=== PATIENT | female | born 1970 | race African-American/Black ===

== ENCOUNTER 2017-05-14 16:21 | Emergency (ER) | payer SELFPAY ==
--- NOTE | 2017-05-14 18:26 | ER Document Report ---
ED Medical Screen (RME) - General Chief Complaint: Allergic Reaction Stated Complaint: POSSIBLE ALLERGIC REACTION Time Seen by Provider: 05/14/17 18:16 Mode of Arrival: Ambulatory Information source: Patient, Relative TRAVEL OUTSIDE OF THE U[place]S. IN LAST 30 DAYS: No - HPI Notes: 05/14/17 18:17 47 yr old with a hx of RA HTN female for complaints of pain between her shoulder blades, headache, right n/t in arm, right jaw pain and chest pain that started 8 hours ago. comes and goes, at least 15 epiodes, sharp and shooting, last for a few seconds. was seen at [facility] x 9 hours ago for these symptoms. pain ketorlac 15mg and dexamethasone 1mg while at [facility]. pt takes lisinopril 10mg daily, did take her medications today. pain ketorlac 15mg and dexamethasone 1mg while at [facility] brother passes from a PR at 47. I have greeted and performed a rapid initial assessment of this patient. A comprehensive ED assessment and evaluation of the patient, analysis of test results and completion of medical decision making process will be conducted by an additional ED providers. - Related Data Allergies/Adverse Reactions: aspirin [Aspirin] Allergy (Verified 01/08/14 12:25) Respiratory distress Past Medical History - Past Medical History Cardiac Medical History: Reports: Hx Hypercholesterolemia, Hx Hypertension Endocrine Medical History: Reports: Hx Diabetes Mellitus Type 2 GI Medical History: Reports: Hx Gastroesophageal Reflux Disease Past Surgical History: Reports: Hx Tubal Ligation - Immunizations Hx Diphtheria, Pertussis, Tetanus Vaccination: Yes Physical Exam - Vital signs Vitals: BP 157/94 H 05/14/17 17:04 - Cardiovascular Rhythm: Regular Course - Vital Signs Vital signs: Temp Pulse Resp BP Pulse Ox 99.1 F 88 12 176/92 H 98 05/14/17 17:12 05/14/17 17:12 05/14/17 17:12 05/14/17 17:12 05/14/17 17:12
[2017-05-14] MEDS ORDERED: LOSARTAN POTASSIUM 25 MG TABLET PO ONE (18:27)
--- NOTE | 2017-05-14 19:00 | RADIOLOGY REPORT (SQ) ---
EXAM DESCRIPTION: CT HEAD WITHOUT COMPLETED DATE/TIME: 05/14/2017 6:52 pm REASON FOR STUDY: cp, HTN with blurred vision COMPARISON: None. TECHNIQUE: Axial images acquired through the brain without intravenous contrast. Images reviewed wi th bone, brain and subdural windows. Images stored on PACS. All CT scanners at this facility use dose modulation, iterative reconstruction, and/or weight based d osing when appropriate to reduce radiation dose to as low as reasonably achievable (ALARA). [facility]: Dose Right [facility]: CareDose [facility]: Dose Right [facility]: Teradose 4D [facility]: [employer] RADIATION DOSE: mGy. LIMITATIONS: None. FINDINGS: VENTRICLES: Normal size and contour. CEREBRUM: No masses. No hemorrhage. No midline shift. No evidence for acute infarction. Normal gra y/white matter differentiation. No areas of low density in the white matter. CEREBELLUM: No masses. No hemorrhage. No alteration of density. No evidence for acute infarction. EXTRAAXIAL SPACES: No fluid collections. No masses. ORBITS AND GLOBE: No intra- or extraconal masses. Normal contour of globe without masses. CALVARIUM: No fracture. PARANASAL SINUSES: No fluid or mucosal thickening. SOFT TISSUES: No mass or hematoma. OTHER: No other significant finding. IMPRESSION: NORMAL BRAIN CT WITHOUT CONTRAST. EVIDENCE OF ACUTE STROKE: NO. COMMENT: Quality ID # [id number]: Final reports with documentation of one or more dose reduction techniques (e.g., Automated exposure control, adjustment of the mA and/or kV according to patient size, use of iterative reconstruction technique) TECHNICAL DOCUMENTATION: JOB ID: [id number] [employer]- All Rights Reserved
--- NOTE | 2017-05-14 19:05 | RADIOLOGY REPORT (SQ) ---
EXAM DESCRIPTION: CHEST PA/LAT COMPLETED DATE/TIME: 05/14/2017 6:58 pm REASON FOR STUDY: cp btwn right shoulder blades COMPARISON: 04/29/2015 EXAM PARAMETERS: NUMBER OF VIEWS: two views TECHNIQUE: Digital Frontal and Lateral radiographic views of the chest acquired. RADIATION DOSE: NA LIMITATIONS: none FINDINGS: LUNGS AND PLEURA: No opacities, masses or pneumothorax. No pleural effusion. MEDIASTINUM AND HILAR STRUCTURES: No masses or contour abnormalities. HEART AND VASCULAR STRUCTURES: Heart normal size. No evidence for failure. BONES: No acute findings. HARDWARE: None in the chest. OTHER: No other significant finding. IMPRESSION: NO SIGNIFICANT RADIOGRAPHIC FINDING IN THE CHEST. TECHNICAL DOCUMENTATION: JOB ID: [id number] [employer]- All Rights Reserved
[2017-05-14 20:41] LABS: ABSOLUTE LYMPHOCYTES (AUTO) 1.6 10^3/uL (0.5-4.7); ABSOLUTE MONOCYTES (AUTO) 0.1 10^3/uL (0.1-1.4); ABSOLUTE NEUT (AUTO) 7.6 10^3/uL (1.7-8.2); BASOPHILS % (AUTO) 0.5 % (0-2); HEMATOCRIT 42.3 % (36.0-47.0); LYMPHOCYTES % (AUTO) 16.7 % (13-45); MEAN CORPUSCULAR HEMOGLOBIN 28.3 pg (27.0-33.4); MEAN CORPUSCULAR HGB CONC 33.2 g/dL (32.0-36.0); MEAN CORPUSCULAR VOLUME 85 fl (80-97); MONOCYTES % (AUTO) 0.7 % (3-13); PLATELET COUNT 322 10^3/uL (150-450); RED BLOOD COUNT 4.96 10^6/uL (3.72-5.28); RED CELL DISTRIBUTION WIDTH 13.5 % (11.5-14.0); SEGMENTED NEUTROPHILS % (AUTO) 82.1 % (42-78); TOTAL CELLS COUNTED % (AUTO) 100 %; WHITE BLOOD COUNT 9.3 10^3/uL (4.0-10.5)
[2017-05-14 22:17] LABS: ALANINE AMINOTRANSFERASE 48 U/L (9-52); ALBUMIN 4.7 g/dL (3.5-5.0); ALKALINE PHOSPHATASE 72 U/L (38-126); ANION GAP 9 (5-19); ASPARTATE AMINO TRANSFERASE 54 U/L (14-36); BILIRUBIN,DIRECT 0.1 mg/dL (0.0-0.4); BILIRUBIN,TOTAL 0.2 mg/dL (0.2-1.3); BLOOD UREA NITROGEN 11 mg/dL (7-20); C-REACTIVE PROTEIN 5.8 mg/L (<10.0); CALCIUM 10.6 mg/dL (8.4-10.2); CARBON DIOXIDE 24 mmol/L (22-30); CHLORIDE 105 mmol/L (98-107); CREATINE KINASE 53 U/L (30-135); GLUCOSE 199 mg/dL (75-110); POTASSIUM 4.2 mmol/L (3.6-5.0); SODIUM 138.1 mmol/L (137-145)
[2017-05-14] MEDS ORDERED: HYDROCODONE/ACETAMINOPHEN 5-325 MG (6 TAB/ER DISP) PO PRN (23:42)
[2017-05-14] MEDS ORDERED: AMOXICILLIN TRYHYD 250 MG/5 ML SUSP 80 ML (ER DISP) PO ONE (23:43)
[2017-05-14 23:48] VITALS: BP 137/89
--- NOTE | 2017-05-14 23:48 | ER Document Report ---
ED General - General Chief Complaint: Allergic Reaction Stated Complaint: POSSIBLE ALLERGIC REACTION Time Seen by Provider: 05/14/17 18:16 Mode of Arrival: Ambulatory Notes: Patient is a 47-year-old female with a past notes history of rheumatoid arthritis and hypertension who presents with multiple complaints. Patient complains of diffuse body pain to her back, shoulders, knees, as well as left ear pain. Patient states that she was also concerned that she may have been having an allergic reaction to a Toradol shot she received earlier today which was actually reason that she came to the emergency department in the very first place. Patient states that family is worried she might be having some swelling to her face and eyelid although it has spontaneously resolved. She denies any prior history of NSAIDs causing problems in the past. Her diffuse body pains described as a aching, constant, throbbing pain to most of her joint spaces. She is currently following with a dump grounds checker for her rheumatoid arthritis. She reports she has been trying [id number] pain medications without any improvement of the pain. She denies any vomiting, fever, altered mental status , focal weakness or numbness. She states that she had some chest discomfort earlier today but that has since spontaneously resolved. TRAVEL OUTSIDE OF THE [place] IN LAST 30 DAYS: No - Related Data Allergies/Adverse Reactions: aspirin [Aspirin] Allergy (Verified 01/08/14 12:25) Respiratory distress Past Medical History - General Information source: Patient, Relative - Social History Smoking Status: Never Smoker Chew tobacco use (# tins/day): No Frequency of alcohol use: None Drug Abuse: None Lives with: Spouse/Significant other Family History: Reviewed & Not Pertinent Patient has suicidal ideation: No Patient has homicidal ideation: No - Past Medical History Cardiac Medical History: Reports: Hx Hypercholesterolemia, Hx Hypertension Endocrine Medical History: Reports: Hx Diabetes Mellitus Type 2 Renal/ Medical History: Denies: Hx Peritoneal Dialysis GI Medical History: Reports: Hx Gastroesophageal Reflux Disease Past Surgical History: Reports: Hx Tubal Ligation - Immunizations Hx Diphtheria, Pertussis, Tetanus Vaccination: Yes Review of Systems - Review of Systems Notes: Constitutional: Negative for fever. HENT: Negative for sore throat. Eyes: Negative for visual changes. Cardiovascular: Positive for chest pain. Respiratory: Negative for shortness of breath. Gastrointestinal: Negative for abdominal pain, vomiting or diarrhea. Genitourinary: Negative for dysuria. Musculoskeletal: Positive for diffuse musculoskeletal pain Skin: Negative for rash. Neurological: Negative for headaches, weakness or numbness. 10 point ROS negative except as marked above and in HPI. Physical Exam - Vital signs Vitals: BP 157/94 H 05/14/17 17:04 Interpretation: Hypertensive Notes: PHYSICAL EXAMINATION: GENERAL: Well-appearing, well-nourished and in no acute distress. HEAD: Atraumatic, normocephalic. EYES: Pupils equal round and reactive to light, extraocular movements intact, sclera anicteric, conjunctiva are normal. ENT: nares patent, oropharynx clear without exudates. Moist mucous membranes. NECK: Normal range of motion, supple without lymphadenopathy LUNGS: Breath sounds clear to auscultation bilaterally and equal. No wheezes rales or rhonchi. HEART: Regular rate and rhythm without murmurs ABDOMEN: Soft, nontender, normoactive bowel sounds. No guarding, no rebound. No masses appreciated. EXTREMITIES: Normal range of motion, no pitting or edema. No cyanosis. NEUROLOGICAL: No focal neurological deficits. Moves all extremities spontaneously and on command. PSYCH: Normal mood, normal affect. SKIN: Warm, Dry, normal turgor, no rashes or lesions noted. Course - Re-evaluation Re-evalutation: 05/14/17 23:44 Patient presents with multiple vague complaints that did not appear to be concerning for any acute life-threatening pathology. Vitals are within normal limits at triage and at time of discharge. Physical examination is unremarkable. Patient has tolerated oral intake without difficulty. Patient was not noted to be in distress at any point during their ER visit. At this time, based on the reassuring evaluation, I do not suspect an acute MS, pulmonary embolus, aortic dissection, acute intra-abdominal pathology, stroke, or sepsis. Patient does have a left otitis media on examination and will be started on amoxicillin, liquid per her request, for the next 10 days. I have also agreed to give the patient a Milton dispense pack for nighttime pain related to her rheumatoid arthritis but have informed her that for long-term she will need follow-up with her dump grounds checker. There is no evidence of an allergic reaction on today's evaluation. Will discharge with return precautions and follow-up recommendations. Verbal discharge instructions given a the bedside and opportunity for questions given. Medication warnings reviewed. Patient is in agreement with this plan and has verbalized understanding of return precautions and the need for primary care follow-up in the next 24-72 hours. - Vital Signs Vital signs: Temp Pulse Resp BP Pulse Ox 98.3 F 81 16 137/89 H 100 05/14/17 23:48 05/14/17 23:48 05/14/17 23:48 05/14/17 23:48 05/14/17 23:48 - Laboratory Result Diagrams: 05/14/17 20:10 05/14/17 20:10 Laboratory results interpreted by me: 05/14/17 05/14/17 20:10 20:10 Seg Neutrophils % 82.1 H Monocytes % 0.7 L Glucose 199 H Calcium 10.6 H AST 54 H - Diagnostic Test Radiology reviewed: Image reviewed, Reports reviewed Radiology results interpreted by me: 05/14/17 23:44 CT head: No acute intracranial bleed or mass Chest x-ray: No acute infiltrate or pneumothorax Discharge - Discharge Clinical Impression: Rheumatoid arthritis Qualifiers: Rheumatoid arthritis location: unspecified site Rheumatoid factor presence: unspecified presence Qualified Code(s): M06.9 - Rheumatoid arthritis, unspecified Left otitis media Qualifiers: Otitis media type: suppurative Chronicity: acute Recurrence: not specified as recurrent Spontaneous tympanic membrane rupture: without spontaneous rupture Qualified Code(s): H66.002 - Acute suppurative otitis media without spontaneous rupture of ear drum, left ear Chest pain Qualifiers: Chest pain type: unspecified Qualified Code(s): R07.9 - Chest pain, unspecified Condition: Good Disposition: HOME, SELF-CARE Additional Instructions: You were seen today for ear pain and have an acute ear infection. Please take the antibiotic that has been prescribed until it is completed even if you are feeling better before you have finished all the antibiotics. For your pain: Take ibuprofen 600 mg and acetaminophen 1000 mg every 6 hours together as needed for pain. Return if you have worsening of your pain, loss of hearing in the affected ear, worsening facial pain, headaches, pass out, or any other symptoms that are worrisome to you. Remainder of your labs, CT of her head, your chest x-ray, are all reassuring. Your history and exam do not suggest a heart attack or any other life- threatening pathology. You have been given a very small amount of Milton which he can use at night only to help you sleep in regards to the pain related to rheumatoid arthritis. However, you need to follow-up with rodeo rider for long-term pain control plan. Forms: Special Work Note Referrals: BETH MENON MD [Primary Care Provider] - Follow up as needed
--- NOTE | 2017-05-15 09:26 | EKG REPORT ---
SEVERITY:- NORMAL ECG - SINUS RHYTHM : Confirmed by: Mao Lloyd 15-May-2017 09:26:13
== END 2017-05-15 00:07 | disposition home or self-care (01) ==
LOC: ER 16:21
DX: M06.9 Rheumatoid arthritis, unspecified (principal); H66.002 Acute suppurative otitis media without spontaneous rupture of ear drum, left ear; R07.9 Chest pain, unspecified; T78.40XA Allergy, unspecified, initial encounter; I10 Essential (primary) hypertension; H92.02 Otalgia, left ear
CPT/HCPCS: 36415; 70450; 71046; 80053; 82550; 84484; 85025; 86140; 93005; 93010; 99284

== ENCOUNTER → 2017-06-12 | Outpatient (CLI) | payer BC ==
--- NOTE | 2017-06-12 15:45 | WOMENS IMAGING REPORT ---
EXAM DESCRIPTION: 3D SCREENING MAMMO BILAT COMPLETED DATE/TIME: 06/12/2017 8:18 am REASON FOR STUDY: SCREENING MAMMO Z12.31 ENCNTR SCREEN MAMMOGRAM FOR MALIGNANT NEOPLASM OF BRYAN COMPARISON: 02/09/2016 and 01/15/2015. TECHNIQUE: Standard craniocaudal and mediolateral oblique views of each breast recorded using digita l acquisition and breast tomosynthesis. LIMITATIONS: None. FINDINGS: No masses, calcifications or architectural distortion. No areas of suspicion. Read with the assistance of CAD. .[facility] - R2 [employer] Version 1.3 .[facility] - R2 Cen[employer] Version 1.3 .[facility] - R2 Cenova Version 2.4 .[facility] - R2 Cenova Version 2.4 .[facility] - R2 [employer] Version 9.2 IMPRESSION: NORMAL MAMMOGRAM. BIRADS 1. BREAST DENSITY: c. The breasts are heterogeneously dense, which may obscure small masses. BIRAD: 1 NEGATIVE RECOMMENDATION: ROUTINE SCREENING COMMENT: The patient has been notified of the results by letter per MQSA requirements. Additional no tification policies are in place for contacting patient with suspicious or incomplete findings. Quality ID #[id number]: The [employer] recommends an annual screening mammogram for women aged 40 years or over. This facility utilizes a reminder system to ensure that all patients receive reminder letters, and/or direct phone calls for appointments. This includes reminders for routine scr eening mammograms, diagnostic mammograms, or other Breast Imaging Interventions when appropriate. Th is patient will be placed in the appropriate reminder system. The [employer] (ACR) has developed recommendations for screening MRI of the breast s in certain patient populations, to be used in conjunction with mammography. Breast MRI surveillanc e may be appropriate for women with more than 20% lifetime risk of developing breast cancer as deter mined by genetic testing, significant family history of the disease, or history of mantle radiation f or Hodgkins Disease. ACR Practice Guidelines 2008. DBT Technology DBT is a type of tomographic mammography. With conventional mammography, overlapping breast tissue ma y make lesions difficult to detect, even with good compression. DBT uses an x-ray tube that rotates a round the breast, taking images at different angles. These images are then combined to create thin sl ices of the breast that the radiologist can view as a 3D reconstruction. The Written unit can perform full-field digital mammograms (2D imaging); or DBT (3D imaging); or both, in a combination mode that quickly performs both the mammogram and the tomosynthesis scan while the breast is still compressed. PQRS 6045F: Fluoroscopic imaging is not utilized for breast tomosynthesis. TECHNICAL DOCUMENTATION: FINDING NUMBER: (1) ASSESSMENT: (1) JOB ID: [id number] [employer]- All Rights Reserved Reading location - IP/workstation name: [email or web address]
== END ==
LOC: WI 07:56
PROVIDERS: ATTEND Nurse Practitioner
DX: Z12.31 Encounter for screening mammogram for malignant neoplasm of breast (principal)
CPT/HCPCS: 77063; 77067

== ENCOUNTER 2018-06-27 22:31 | Emergency (ER) | payer BC ==
--- NOTE | 2018-06-28 01:20 | ER Document Report ---
ED General - General Chief Complaint: Arm Pain Stated Complaint: NUMBNESS IN LEFT ARM Time Seen by Provider: 06/28/18 01:03 Primary Care Provider: DAMIAN CONNOR FNP [Primary Care Provider] - Follow up as needed Notes: Patient is a 48-year-old female with a history of rheumatoid arthritis that comes to the emergency department for chief complaint of chest pain. She states that she frequently has chest pain over the front of her chest mainly, however she felt it go up towards her left shoulder and neck area earlier and she felt some tingling in her left arm. She states that the pain is sharp, intermittent, reproducible with palpation over the arm/chest, and with movement. No fevers recorded, she denies shortness of breath, she denies dizziness, nausea, vomiting. She denies personal history of cardiac disease. She is on multiple medications for RA including methotrexate, Humira infusions every other week, and is currently on a prednisone taper because of her recent increase in pain mainly over the chest. She follows with [facility] rheumatology. She states she gets blood checked every month. She takes pain medication only as needed, she is on control. She denies smoking, alcohol, recreational drugs. Her brother had an DE. TRAVEL OUTSIDE OF THE [place] IN LAST 30 DAYS: No - Related Data Allergies/Adverse Reactions: aspirin [Aspirin] Allergy (Verified 01/08/14 12:25) Respiratory distress Past Medical History - General Information source: Patient - Social History Smoking Status: Never Smoker Frequency of alcohol use: None Drug Abuse: None Lives with: Family Family History: Reviewed & Not Pertinent - Past Medical History Cardiac Medical History: Reports: Hx Hypercholesterolemia, Hx Hypertension Endocrine Medical History: Reports: Hx Diabetes Mellitus Type 2 Renal/ Medical History: Denies: Hx Peritoneal Dialysis GI Medical History: Reports: Hx Gastroesophageal Reflux Disease Past Surgical History: Reports: Hx Tubal Ligation - Immunizations Hx Diphtheria, Pertussis, Tetanus Vaccination: Yes Review of Systems - Review of Systems Constitutional: No symptoms reported EENT: No symptoms reported Cardiovascular: See HPI Respiratory: See HPI Gastrointestinal: No symptoms reported Genitourinary: No symptoms reported Female Genitourinary: No symptoms reported Musculoskeletal: See HPI Skin: No symptoms reported Hematologic/Lymphatic: No symptoms reported Neurological/Psychological: No symptoms reported Physical Exam - Vital signs Vitals: Temp Pulse Resp BP Pulse Ox 98.9 F 81 17 170/93 H 100 06/27/18 23:26 06/27/18 23:26 06/27/18 23:26 06/27/18 23:26 06/27/18 23:26 - Notes Notes: GENERAL: Alert, interacts well. No acute distress. HEAD: Normocephalic, atraumatic. EYES: Pupils equal, round, and reactive to light. Extraocular movements intact. ENT: Oral mucosa moist, tongue midline. Oropharynx unremarkable. Airway patent. Nares patent, no nasal septal hematoma, TM's intact. NECK: Full range of motion. Supple. Trachea midline. LUNGS: Clear to auscultation bilaterally, no wheezes, rales, or rhonchi. No respiratory distress. Very reproducible tenderness over the chest wall generally. There is also tenderness over the left proximal arm. HEART: Regular rate and rhythm. No murmur ABDOMEN: Soft, non-tender. Non-distended. Bowel sounds present in all 4 quadrant s. GENITOURINARY: Deferred EXTREMITIES: Moves all 4 extremities spontaneously. No edema, normal radial and dorsalis pedis pulses bilaterally. No cyanosis. BACK: no cervical, thoracic, lumbar midline tenderness. No saddle anesthesia, normal distal neurovascular exam. NEUROLOGICAL: Alert and oriented x3. Normal speech. [cranial nerves II through XII grossly intact]. PSYCH: Normal affect, normal mood. SKIN: Warm, dry, normal turgor. No rashes or lesions noted. Course - Re-evaluation Re-evalutation: EKG with no T wave inversions or ST segment changes in consecutive leads. Initial troponin negative. Chest x-ray unremarkable. CBC and chemistry unremarkable. Initially patient not asking for anything, but then later she is asking for pain across her chest wall. She has very reproducible chest wall and left arm tenderness which is musculoskeletal. She was provided with this. Afterwards she had no symptoms. Second troponin obtained and is negative. I discussed with patient in detail. Based on her age and risk factors her heart score is 3. I did recommend that she have a stress test performed, she states she prefers to have her primary care in [place] refer her to a [place] admissions clinician to have this perfor med. She states she will call in the morning. She has no current symptoms unless she moves, she does have some pain with movement. She is following closely with rheumatology as well. No tachycardia, hypoxia, or signs of distress. Discussed return precautions with patient in detail however. Patient states understanding and agreement with plan. - Vital Signs Vital signs: Temp Pulse Resp BP Pulse Ox 98.5 F 79 18 115/80 98 06/28/18 01:16 06/28/18 01:08 06/28/18 05:15 06/28/18 05:15 06/28/18 05:15 - Laboratory Result Diagrams: 06/28/18 01:37 06/28/18 01:37 Laboratory results interpreted by me: 06/28/18 06/28/18 01:37 01:37 Hgb 11.9 L Hct 34.9 L Sodium 136.4 L Glucose 152 H Discharge - Discharge Clinical Impression: Chest wall pain Chest pain Qualifiers: Chest pain type: unspecified Qualified Code(s): R07.9 - Chest pain, unspecified Rheumatoid arthritis Qualifiers: Rheumatoid arthritis location: unspecified site Rheumatoid factor presence: unspecified presence Qualified Code(s): M06.9 - Rheumatoid arthritis, unspecified Condition: Stable Disposition: HOME, SELF-CARE Additional Instructions: Your work-up tonight does not show any concerning abnormalities. I strongly recommend a close cardiology follow-up, call your primary care provider today to have this referral established and your work-up completed including stress testing. Return if you worsen including increased pain, difficulty breathing, fever, passing out, or any other concerning or worsening symptoms. Forms: Treatment of Relative/Child Referrals: DAMIAN CONNOR FNP [Primary Care Provider] - Follow up as needed
[2018-06-28] MEDS ORDERED: ONDANSETRON HCL INJ/PF 4 MG/2 ML SDV IV ONE (01:48)
[2018-06-28] MEDS ORDERED: MORPHINE SULFATE 10 MG/ML INJ IV ONE (01:48)
[2018-06-28 01:49] LABS: ABSOLUTE BASOPHILS # (AUTO) 0.1 10^3/uL (0.0-0.2); ABSOLUTE EOSINOPHILS # (AUTO) 0.1 10^3/uL (0.0-0.6); ABSOLUTE LYMPHOCYTES (AUTO) 3.7 10^3/uL (0.5-4.7); ABSOLUTE MONOCYTES (AUTO) 0.6 10^3/uL (0.1-1.4); HEMATOCRIT 34.9 % (36.0-47.0); HEMOGLOBIN 11.9 g/dL (12.0-15.5); LYMPHOCYTES % (AUTO) 38.7 % (13-45); MEAN CORPUSCULAR HEMOGLOBIN 28.8 pg (27.0-33.4); MEAN CORPUSCULAR HGB CONC 34.1 g/dL (32.0-36.0); MEAN CORPUSCULAR VOLUME 84 fl (80-97); MONOCYTES % (AUTO) 6.7 % (3-13); PLATELET COUNT 252 10^3/uL (150-450); RED BLOOD COUNT 4.13 10^6/uL (3.72-5.28); RED CELL DISTRIBUTION WIDTH 13.3 % (11.5-14.0); SEGMENTED NEUTROPHILS % (AUTO) 52.6 % (42-78); TOTAL CELLS COUNTED % (AUTO) 100 %; WHITE BLOOD COUNT 9.5 10^3/uL (4.0-10.5)
[2018-06-28 02:02] LABS: ALANINE AMINOTRANSFERASE 24 U/L (9-52); ALBUMIN 3.8 g/dL (3.5-5.0); ALKALINE PHOSPHATASE 56 U/L (38-126); ANION GAP 8 (5-19); ASPARTATE AMINO TRANSFERASE 25 U/L (14-36); BILIRUBIN,DIRECT 0.1 mg/dL (0.0-0.4); BILIRUBIN,TOTAL 0.3 mg/dL (0.2-1.3); BLOOD UREA NITROGEN 11 mg/dL (7-20); CALCIUM 9.6 mg/dL (8.4-10.2); CARBON DIOXIDE 23 mmol/L (22-30); CHLORIDE 105 mmol/L (98-107); GLUCOSE 152 mg/dL (75-110); POTASSIUM 3.7 mmol/L (3.6-5.0); SODIUM 136.4 mmol/L (137-145); TOTAL PROTEIN 7.2 g/dL (6.3-8.2)
--- NOTE | 2018-06-28 02:13 | RADIOLOGY REPORT (SQ) ---
EXAM DESCRIPTION: XR CHEST 1 VIEW COMPLETED DATE/TME: 06/28/2018 01:16 CLINICAL HISTORY: 48 years, Female, chest pain Comparison: None FINDINGS: No focal lung consolidation. No pleural effusion. No pneumothorax. Cardiac and mediastinal silhouette is unremarkable. No acute osseous abnormality. Soft tissues are unremarkable. IMPRESSION: No acute findings. No focal lung consolidation.
[2018-06-28 05:20] VITALS: BP 115/80
--- NOTE | 2018-06-28 20:52 | EKG REPORT ---
SEVERITY:- NORMAL ECG - SINUS RHYTHM : Confirmed by: Kimberly Smith MD 28-Jun-2018 20:51:58
== END 2018-06-28 05:36 | disposition home or self-care (01) ==
LOC: ER 22:31
DX: M06.9 Rheumatoid arthritis, unspecified (principal); R07.9 Chest pain, unspecified; R07.89 Other chest pain; R20.0 Anesthesia of skin; M79.602 Pain in left arm; M25.512 Pain in left shoulder; M54.2 Cervicalgia; I10 Essential (primary) hypertension; E11.9 Type 2 diabetes mellitus without complications
CPT/HCPCS: 93005; 99284; 96374; 96375; 36415; 85025; 80053; 84484; 71045; 93010; J2270; J2405

== ENCOUNTER 2020-02-06 18:33 | Emergency (ER) | payer BC, OTHER ==
[2020-02-06] MEDS ORDERED: ACETAMINOPHEN 325 MG TABLET PO ONE (20:02)
--- NOTE | 2020-02-06 20:06 | ER Document Report ---
ED Medical Screen (RME) - General Chief Complaint: Chest Pain Stated Complaint: CHEST PAIN,BACK PAIN Time Seen by Provider: 02/06/20 19:53 Primary Care Provider: DAMIAN CONNOR FNP [Primary Care Provider] - Follow up as needed Mode of Arrival: Ambulatory Information source: Patient Notes: Patient is a 49-year-old -[place] female with history of rheumatoid arthritis and a number of other medical problems coming in today with sharp pain across her chest. Also pain across her upper back. She has a low-grade fever. She is on [employer] for her RA. 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 General exam: Latest appearing but nontoxic Heart: Regular rate and rhythm Pulmonary clear Abdomen nontender nondistended I have greeted and performed a rapid initial assessment of this patient. A comprehensive ED assessment and evaluation of the patient, analysis of test results and completion of the medical decision making process will be conducted by additional ED providers. TRAVEL OUTSIDE OF THE [place] IN LAST 30 DAYS: No - Related Data Allergies/Adverse Reactions: aspirin [Aspirin] Allergy (Verified 02/06/20 19:50) Respiratory distress Past Medical History - Social History Frequency of alcohol use: None Drug Abuse: None - Past Medical History Cardiac Medical History: Reports: Hx Hypercholesterolemia, Hx Hypertension Endocrine Medical History: Reports: Hx Diabetes Mellitus Type 2 Renal/ Medical History: Denies: Hx Peritoneal Dialysis GI Medical History: Reports: Hx Gastroesophageal Reflux Disease Musculoskeltal Medical History: Reports Hx Arthritis Past Surgical History: Reports: Hx Cholecystectomy, Hx Tubal Ligation - Immunizations Hx Diphtheria, Pertussis, Tetanus Vaccination: Yes Physical Exam - Vital signs Vitals: Temp Pulse Resp BP Pulse Ox 100.2 F 109 H 16 141/95 H 98 02/06/20 18:55 02/06/20 18:55 02/06/20 18:55 02/06/20 18:55 02/06/20 18:55 Course - Vital Signs Vital signs: Temp Pulse Resp BP Pulse Ox 100.2 F 109 H 16 141/95 H 98 02/06/20 18:55 02/06/20 18:55 02/06/20 18:55 02/06/20 18:55 02/06/20 18:55 Doctor's Discharge - Discharge Referrals: DAMIAN CONNOR FNP [Primary Care Provider] - Follow up as needed
--- NOTE | 2020-02-06 20:49 | RADIOLOGY REPORT (SQ) ---
XR CHEST 1 VIEW HISTORY: Chest pain. COMPARISON: 06/28/2018 FINDINGS: The heart size is within normal limits. There is no pulmonary vascular congestion. No consolidation, pleural effusion, or pneumothorax is seen. No acute bony findings are seen. IMPRESSION: No evidence of acute cardiopulmonary disease.
[2020-02-06] MEDS ORDERED: ONDANSETRON 4 MG TAB.RAPDIS PO ONE (21:16)
[2020-02-06 23:12] LABS: ABSOLUTE LYMPHOCYTES (AUTO) 1.8 10^3/uL (0.5-4.7); ABSOLUTE MONOCYTES (AUTO) 1.1 10^3/uL (0.1-1.4); BASOPHILS % (AUTO) 0.6 % (0-2); EOSINOPHILS % (AUTO) 0.1 % (0-6); HEMATOCRIT 41.2 % (36.0-47.0); HEMOGLOBIN 13.7 g/dL (12.0-15.5); LYMPHOCYTES % (AUTO) 26.1 % (13-45); MEAN CORPUSCULAR HEMOGLOBIN 28.1 pg (27.0-33.4); MEAN CORPUSCULAR HGB CONC 33.2 g/dL (32.0-36.0); MEAN CORPUSCULAR VOLUME 85 fl (80-97); MONOCYTES % (AUTO) 15.3 % (3-13); PLATELET COUNT 178 10^3/uL (150-450); RED BLOOD COUNT 4.87 10^6/uL (3.72-5.28); RED CELL DISTRIBUTION WIDTH 13.4 % (11.5-14.0); SEGMENTED NEUTROPHILS % (AUTO) 57.9 % (42-78); TOTAL CELLS COUNTED % (AUTO) 100 %
[2020-02-06 23:27] LABS: ALBUMIN 4.2 g/dL (3.5-5.0); ALKALINE PHOSPHATASE 68 U/L (38-126); ANION GAP 13 (5-19); ASPARTATE AMINO TRANSFERASE 61 U/L (14-36); BILIRUBIN,DIRECT 0.2 mg/dL (0.0-0.4); BILIRUBIN,TOTAL 0.4 mg/dL (0.2-1.3); BLOOD UREA NITROGEN 7 mg/dL (7-20); CALCIUM 9.4 mg/dL (8.4-10.2); CARBON DIOXIDE 20 mmol/L (22-30); CHLORIDE 102 mmol/L (98-107); GLUCOSE 137 mg/dL (75-110); POTASSIUM 3.9 mmol/L (3.6-5.0); TOTAL PROTEIN 7.5 g/dL (6.3-8.2)
[2020-02-07] MEDS ORDERED: PREDNISONE 20 MG TABLET PO ONE (00:23)
[2020-02-07] MEDS ORDERED: ACETAMINOPHEN WITH CODEINE #3 TABLET PO ONE (00:23)
[2020-02-07] MEDS ORDERED: NORMAL SALINE 1000 ML 1,000 ML IV ONE (00:27)
[2020-02-07 02:00] LABS: A TYPE INFLUENZA AG NEGATIVE (NEGATIVE); B INFLUENZA AG NEGATIVE (NEGATIVE)
--- NOTE | 2020-02-07 02:57 | RADIOLOGY REPORT (SQ) ---
CT angiogram chest with contrast on 02/07/2020 at 2:00 AM CLINICAL INDICATION: Chest pain, elevated d-dimer, fever TECHNIQUE: Multiple axial images are obtained throughout the chest following the administration of IV contrast. Computer generated 3D reconstructions/MIPS were performed. This exam was performed according to our departmental dose-optimization program, which includes automated exposure control, adjustment of the mA and/or kV according to patient size and/or use of iterative reconstruction technique. Total DLP is 410.02 mGy*cm. COMPARISON: None FINDINGS: There is no thoracic aortic aneurysm or dissection. The patient is status post cholecystectomy. Limited visualized upper abdomen is unremarkable. There is no pleural or pericardial effusion. There is evidence of calcified granulomatous disease in the chest. There are no filling defects within the pulmonary arteries to suggest a pulmonary embolus. There is single peripheral groundglass opacity that is relatively wedge-shaped in the superior right lower lobe seen well on axial image 45 and coronal image 49. This has an appearance worrisome for small pulmonary infarct although a definite peripheral filling defect to confirm a pulmonary embolus in this region is not identified. Early infectious etiology is also possible. The lungs are otherwise clear. No bony abnormality is noted. IMPRESSION: 1. No definite evidence of pulmonary embolus. 2. Peripheral opacity in the right lower lobe. Visually this has an appearance worrisome for small pulmonary infarct although a definite pulmonary embolus as a cause of this is not identified therefore this is favored to be post infectious or inflammatory. Imaging features can be seen with viral pneumonia, though are nonspecific and can occur with a variety of infectious and noninfectious processes. [PneInd] Reference: https://pubs.rsna.org/doi/full/10.1148/ryct.7544450250
[2020-02-07] MEDS ORDERED: AZITHROMYCIN 250 MG TABLET PO ONE (03:46)
--- NOTE | 2020-02-07 03:56 | ER Document Report ---
ED General - General Chief Complaint: Chest Pain Stated Complaint: CHEST PAIN,BACK PAIN Time Seen by Provider: 02/06/20 19:53 Primary Care Provider: DAMIAN CONNOR FNP [Primary Care Provider] - Follow up as needed Mode of Arrival: Ambulatory Notes: 49-year-old female with diabetes, hypertension, rheumatoid arthritis on prednisone and Humira presents with approximately 2 days of gradual onset gradually worsening constant and diffuse chest pain feeling like it is radiating to her upper back associated with subjective fever. Patient endorses having a dry cough for the past month without any recent change. Patient denies any focal back pain, drug use, neck pain or stiffness, headache, productive cough, abdominal pain, vomiting, diarrhea or constipation, unexplained weight loss, low er extremity edema, DVT/PE/hypercoagulability history in self or family, cancer history, hemoptysis, recent travel/trauma/surgery/immobilization, sick contacts, recent hospitalizations, recent antibiotics, smoking history, asthma history, cardiac history, exertional chest pain, pleuritic chest pain TRAVEL OUTSIDE OF THE [place] IN LAST 30 DAYS: No - Related Data Allergies/Adverse Reactions: aspirin [Aspirin] Allergy (Verified 02/06/20 19:50) Respiratory distress Past Medical History - General Information source: Patient - Social History Smoking Status: Former Smoker Frequency of alcohol use: None Drug Abuse: None Family History: Reviewed & Not Pertinent - Past Medical History Cardiac Medical History: Reports: Hx Hypercholesterolemia, Hx Hypertension Endocrine Medical History: Reports: Hx Diabetes Mellitus Type 2 Renal/ Medical History: Denies: Hx Peritoneal Dialysis GI Medical History: Reports: Hx Gastroesophageal Reflux Disease Musculoskeletal Medical History: Reports Hx Arthritis Past Surgical History: Reports: Hx Cholecystectomy, Hx Tubal Ligation - Immunizations Hx Diphtheria, Pertussis, Tetanus Vaccination: Yes Review of Systems - Review of Systems Notes: REVIEW OF SYSTEMS: CONSTITUTIONAL : + fever, chills, or sweats. EENT: Denies recent sinus symptoms, denies throat pain CARDIOVASCULAR: + chest pain, -JL RESPIRATORY: + cough, denies shortness of breath. GASTROINTESTINAL: Denies abdominal pain, nausea/vomiting. GENITOURINARY: Denies difficulty urinating, painful urination. FEMALE GENITOURINARY: Denies abnormal vaginal bleeding, vaginal discharge. MUSCULOSKELETAL: Denies neck pain, +back pain. SKIN: Denies rash or skin lesions. HEMATOLOGIC : Denies easy bruising or bleeding. LYMPHATIC: Denies swollen, enlarged glands. NEUROLOGICAL: Denies headache, denies change in gait. PSYCHIATRIC: Denies anxiety or stress or depression. Physical Exam - Vital signs Vitals: Temp Pulse Resp BP Pulse Ox 100.2 F 109 H 16 141/95 H 98 02/06/20 18:55 02/06/20 18:55 02/06/20 18:55 02/06/20 18:55 02/06/20 18:55 - Notes Notes: PHYSICAL EXAMINATION: GENERAL: Well-appearing, well-nourished and in no acute distress. HEAD: Atraumatic, normocephalic. EYES: Pupils equal round and appropriate constriction, sclera anicteric, conjunctiva are normal. ENT: nares patent, moist mucous membranes. NECK/BACK: Normal range of motion, supple without lymphadenopathy, no midline spinal tenderness or deformity, no focality to back pain, normal inspection LUNGS: Breath sounds clear to auscultation bilaterally and equal. No wheezes rales or rhonchi. Normal respiratory rate and effort HEART: Regular rate and rhythm without murmurs ABDOMEN: Soft, nontender, no guarding, no masses, no CVAT EXTREMITIES: Normal range of motion, no pitting or edema. No cyanosis. NEUROLOGICAL: Awake, alert, conversing appropriately, moves all extremities spontaneously. PSYCH: Normal mood, normal affect. SKIN: Warm, Dry, normal turgor, no rashes or lesions noted. Course - Re-evaluation Re-evalutation: 02/07/20 03:59 Patient with chest pain, to ACS risk factors for the story not highly concerning for ACS, will rule out with EKG and troponin. Obtain D-dimer to rule out PE which was positive so I obtained CTA which did not show PE but did show a possible wedge-shaped infiltrate peripherally without any associated pulmonary embolism, given patient's fever and cough will treat for community-acquired pneumonia with azithromycin, ordered prednisone initially for possibility of RA flare causing her symptoms, but given infiltrate will not continue burst course of prednisone. Patient's respiratory status is completely normal, patient's pain is controlled, no indication for admission at this time. Patient appropriate for outpatient management with close PCP follow-up. Spoke to patient at length about return to ED precautions. Send Covid swab and instructed patient to quarantine. Patient ready for discharge. - Vital Signs Vital signs: Temp Pulse Resp BP Pulse Ox 98.2 F 76 18 130/85 H 97 02/07/20 02:00 02/07/20 02:00 02/07/20 02:00 02/07/20 02:00 02/07/20 02:00 - Laboratory Result Diagrams: 02/06/20 23:00 02/06/20 23:00 Laboratory results interpreted by me: 02/06/20 02/06/20 02/06/20 23:00 23:00 23:00 [place] % (Auto) 15.3 H D-Dimer Sodium 135.2 L Carbon Dioxide 20 L Creatinine 0.44 L Glucose 137 H Lactic Acid 0.6 L AST 61 H ALT 78 H 02/06/20 23:00 [place] % (Auto) D-Dimer 1.46 H Sodium Carbon Dioxide Creatinine Glucose Lactic Acid AST ALT - EKG Interpretation by Me Additional EKG results interpreted by me: 02/07/20 04:03 Sinus tachycardia, no significant ST elevations or depressions, no significant T wave abnormalities, QTc 435 Discharge - Discharge Clinical Impression: Pulmonary infiltrate Chest pain Qualifiers: Chest pain type: unspecified Qualified Code(s): R07.9 - Chest pain, unspecified Disposition: HOME, SELF-CARE Additional Instructions: Patient was provided with discharge information including: As a person under investigation for Covid 19, the [place] department of Health and Human Services, division of public health advises you to adhere to the following guidance until your test results are reported to you. If your test result is positive, you will receive additional information from your provider and your local health department at that time. Remain at home until you are cleared by the health provider or public health au thorities. Keep a log of visitors to your home, notify any visitors to your home of your isolation status. If you plan to move to a new address or leave the county, notify the local health department in your County. Call your doctor or seek care if you have an urgent medical need. Before seek ing medical care, call ahead to get instructions from the provider before arriving at the medical office clinic or hospital. Notify them that you are being tested for the virus that causes Covid 19 so that arrangements can be made, as necessary, to prevent transmission to others in the healthcare setting. Next, notify the local health department in your county. If a medical emergency arises and you need to call 911, inform the first responders that you are being tested for the virus that causes Covid 19. Next, notify the local health department in your county. Take all antibiotics as prescribed. Follow-up with your neurological surgeon, primary doctor, and with the customer response representative. If you have any worsening symptoms, worsening pain, difficulty breathing, dizziness, fainting, confusion, or any other worsening or alarming symptoms return to the emergency department immediately. You have several minor lab abnormalities on your work-up that she should discuss with your primary doctor. Bring the copy were given the body of your test results with you when you go for follow-up. Prescriptions: Azithromycin 250 mg PO QAM #4 tablet Referrals: DAMIAN CONNOR FNP [Primary Care Provider] - Follow up in 1 week HANNAH TEE MD [ACTIVE PROVISIONAL STAFF] - Follow up in 1 week TERESA CASTRO MD [ACTIVE STAFF] - Follow up in 1 week
[2020-02-07 04:33] VITALS: BP 129/82
--- NOTE | 2020-02-07 06:49 | EKG REPORT ---
SEVERITY:- BORDERLINE ECG - SINUS TACHYCARDIA PROBABLE LEFT ATRIAL ABNORMALITY BORDERLINE T ABNORMALITIES, ANTERIOR LEADS : Confirmed by: Paresh Ruiz MD 07-Feb-2020 06:48:50
== END 2020-02-07 04:31 | disposition home or self-care (01) ==
LOC: ER 18:33
DX: R07.9 Chest pain, unspecified (principal); R91.8 Other nonspecific abnormal finding of lung field; R05 Cough; R50.9 Fever, unspecified; R00.0 Tachycardia, unspecified; E11.9 Type 2 diabetes mellitus without complications; I10 Essential (primary) hypertension; M06.9 Rheumatoid arthritis, unspecified; Z79.52 Long term (current) use of systemic steroids; Z79.899 Other long term (current) drug therapy; Z87.891 Personal history of nicotine dependence; Z88.8 Allergy status to other drugs, medicaments and biological substances; Z20.828 Contact with and (suspected) exposure to other viral communicable diseases
CPT/HCPCS: 93005; 99285; 96360; 36415; 83605; 84703; 85025; 87635; 80053; 84484; 85379; 87804; 71045; 71275; 93010; S0119; J7512; J7030; C9803

== ENCOUNTER 2020-02-14 04:25 | Emergency (ER) | payer OTHER ==
[2020-02-14 05:26] LABS: ABSOLUTE LYMPHOCYTES (AUTO) 1.6 10^3/uL (0.5-4.7); ABSOLUTE MONOCYTES (AUTO) 0.6 10^3/uL (0.1-1.4); ABSOLUTE NEUT (AUTO) 2.9 10^3/uL (1.7-8.2); BASOPHILS % (AUTO) 0.4 % (0-2); EOSINOPHILS % (AUTO) 0.2 % (0-6); HEMATOCRIT 39.1 % (36.0-47.0); HEMOGLOBIN 13.1 g/dL (12.0-15.5); LYMPHOCYTES % (AUTO) 32.1 % (13-45); MEAN CORPUSCULAR HGB CONC 33.6 g/dL (32.0-36.0); MEAN CORPUSCULAR VOLUME 84 fl (80-97); MONOCYTES % (AUTO) 11.7 % (3-13); PLATELET COUNT 167 10^3/uL (150-450); RED BLOOD COUNT 4.68 10^6/uL (3.72-5.28); RED CELL DISTRIBUTION WIDTH 13.1 % (11.5-14.0); SEGMENTED NEUTROPHILS % (AUTO) 55.6 % (42-78); TOTAL CELLS COUNTED % (AUTO) 100 %; WHITE BLOOD COUNT 5.1 10^3/uL (4.0-10.5)
[2020-02-14 05:40] LABS: ALBUMIN 3.7 g/dL (3.5-5.0); ALKALINE PHOSPHATASE 86 U/L (38-126); ANION GAP 13 (5-19); ASPARTATE AMINO TRANSFERASE 49 U/L (14-36); BILIRUBIN,DIRECT 0.2 mg/dL (0.0-0.4); BILIRUBIN,TOTAL 0.5 mg/dL (0.2-1.3); BLOOD UREA NITROGEN 7 mg/dL (7-20); CALCIUM 8.6 mg/dL (8.4-10.2); CARBON DIOXIDE 24 mmol/L (22-30); CHLORIDE 101 mmol/L (98-107); GLUCOSE 151 mg/dL (75-110); TOTAL PROTEIN 6.9 g/dL (6.3-8.2)
[2020-02-14] MEDS ORDERED: ONDANSETRON HCL INJ/PF 4 MG/2 ML SDV IV ONE ×2 (05:42→05:50)
[2020-02-14] MEDS ORDERED: NORMAL SALINE 1000 ML 1,000 ML IV ONE ×2 (05:42→07:22)
[2020-02-14] MEDS ORDERED: METOCLOPRAMIDE HCL INJ/PF 10 MG/2 ML SDV IV ONE (07:23)
[2020-02-14] MEDS ORDERED: FAMOTIDINE INJ/PF 20 MG/2 ML SDV IV ONE (07:24)
[2020-02-14 08:20] LABS: APPEARANCE,URINE SLIGHTLY-CLOUDY; BILIRUBIN,URINE NEGATIVE (NEGATIVE); COLOR,URINE YELLOW; GLUCOSE, URINE 50 mg/dL (NEGATIVE); KETONES,URINE 80 mg/dL (NEGATIVE); LEUKOCYTE ESTERASE,URINE NEGATIVE (NEGATIVE); NITRITE,URINE NEGATIVE (NEGATIVE); PROTEIN,URINE 100 mg/dL (NEGATIVE); URINE SPECIFIC GRAVITY 1.021
--- NOTE | 2020-02-14 08:41 | RADIOLOGY REPORT (SQ) ---
EXAM DESCRIPTION: ACUTE ABDOMEN SERIES IMAGES COMPLETED DATE/TIME: 02/14/2020 7:47 am REASON FOR STUDY: nausea/vomiting COMPARISON: None. NUMBER OF VIEWS: Three views. TECHNIQUE: Frontal chest, supine abdomen and upright/decubitus abdomen radiographic images acquired. LIMITATIONS: None. FINDINGS: CHEST: Bibasilar patchy airspace disease, atelectasis versus pneumonia. No pleural effusion, no pneumothorax FREE AIR: None. No abnormal gas collections. BOWEL GAS PATTERN: Nonobstructive pattern. No dilated loops or air fluid levels. CALCIFICATIONS: No suspicious calcifications. HARDWARE: Clips right upper quadrant post cholecystectomy SOFT TISSUES: No gross mass or suggestion of organomegaly. BONES: No acute fracture. Unfused spinous process at L1. OTHER: No other significant finding. IMPRESSION: NO RADIOGRAPHIC EVIDENCE FOR ACUTE ABDOMINAL DISEASE. TECHNICAL DOCUMENTATION: JOB ID: [id number] 2010 [employer]- All Rights Reserved Reading location - IP/workstation name: [id number]
--- NOTE | 2020-02-14 09:16 | EKG REPORT ---
SEVERITY:- BORDERLINE ECG - SINUS RHYTHM BORDERLINE T ABNORMALITIES, ANT-LAT LEADS : Confirmed by: Mao Lloyd 14-Feb-2020 09:15:53
[2020-02-14] MEDS: POTASSI CL 20 MEQ/50 ML RIDER 20 MEQ/50 ML RTUPB IV SCH ×2 (12:56→15:08)
--- NOTE | 2020-02-14 13:40 | ER Document Report ---
Entered by DANNA SHOEMAKER SCRIBE 02/14/20 0727 Acting as scribe for:VAN MARTINEZ MD ED GI/ - General Chief Complaint: Vomiting Stated Complaint: NAUSEA,VOMITING Time Seen by Provider: 02/14/20 06:12 Primary Care Provider: DAMIAN CONNOR FNP [Primary Care Provider] - Follow up as needed Mode of Arrival: Ambulatory Information source: Patient Notes: This 49 year old female patient with a history of rheumatoid arthritis, hypertension, and type 2 diabetes mellitus presents to the ED today with complaints of nausea and vomiting for the past x1 week. Patient states that she has not been able to keep anything down and that she has been having loose stools. TRAVEL OUTSIDE OF THE [place] IN LAST 30 DAYS: No - Related Data Allergies/Adverse Reactions: aspirin [Aspirin] Allergy (Verified 02/06/20 19:50) Respiratory distress Past Medical History - General Information source: Patient, [facility] Records - Social History Smoking Status: Unknown if Ever Smoked Smoking Education Provided: No Family History: Reviewed & Not Pertinent - Past Medical History Cardiac Medical History: Reports: Hx Hypercholesterolemia, Hx Hypertension Endocrine Medical History: Reports: Hx Diabetes Mellitus Type 2 GI Medical History: Reports: Hx Gastroesophageal Reflux Disease Musculoskeletal Medical History: Reports Hx Arthritis Past Surgical History: Reports: Hx Cholecystectomy, Hx Tubal Ligation - Immunizations Hx Diphtheria, Pertussis, Tetanus Vaccination: Yes Review of Systems - Review of Systems Constitutional: No symptoms reported EENT: No symptoms reported Cardiovascular: No symptoms reported Respiratory: No symptoms reported Gastrointestinal: See HPI, Diarrhea - loose stools, Nausea, Vomiting Genitourinary: No symptoms reported Female Genitourinary: No symptoms reported Musculoskeletal: No symptoms reported Skin: No symptoms reported Hematologic/Lymphatic: No symptoms reported Neurological/Psychological: No symptoms reported -: Yes All other systems reviewed and negative Physical Exam - Vital signs Vitals: Temp Pulse Resp BP Pulse Ox 99.4 F 88 15 137/81 H 95 02/14/20 04:42 02/14/20 04:42 02/14/20 04:42 02/14/20 04:42 02/14/20 04:42 - General General appearance: Alert In distress: None - HEENT Head: Normocephalic, Atraumatic Eyes: Normal Pupils: PERRL Pharynx: Normal. No: Erythema Neck: Normal, Supple - Respiratory Respiratory status: No respiratory distress Chest status: Nontender Breath sounds: Normal Chest palpation: Normal - Cardiovascular Rhythm: Regular Heart sounds: Normal auscultation Murmur: No Friction rub: No Gallop: None auscultated - Abdominal Inspection: Normal Distension: No distension Bowel sounds: Normal Tenderness: Tender - Epigastric tenderness to palpation Organomegaly: No organomegaly - Back Back: Normal, Nontender - Extremities General upper extremity: Normal inspection General lower extremity: Normal inspection. No: Edema - Neurological Neuro grossly intact: Yes Orientation: AAOx4 Bill Coma Scale Eye Opening: Spontaneous Bill Coma Scale Verbal: Oriented [place] Coma Scale Motor: Obeys Commands Bill Coma Scale Total: 15 - Psychological Associated symptoms: Normal affect, Normal mood - Skin Skin Temperature: Warm Skin Moisture: Dry Skin Color: Normal Course - Re-evaluation Re-evalutation: 02/14/20 11:35 Patient has had no vomiting while in the department. Patient was tested for swallowing by nursing staff and patient swallows without any difficulty. Also no vomiting. 02/14/20 13:29 Patient has not shown any vomiting and hours while in emergency department. Patient was tested for swallowing and had no difficulty swallowing fluids. Patient is receiving ice at this time and has no trouble swallowing ice as it melts her mouth. Patient is receiving IV potassium due to her potassium being low. Discussed with patient that she did not meet criteria to be admitted to the hospital at this time. Patient will be discharged home with potassium supplements and. Also recommended the patient begin taking boost or Ensure and to diluted with half-strength with half of it being in water. So that she can sit and keep nutrition stable in her body. Also advised patient that she can drink Gatorade half-strength as well there would also ensure that she is receiving certain minerals of the body of sodium and potassium and magnesium. - Vital Signs Vital signs: Temp Pulse Resp BP Pulse Ox 98.2 F 88 26 H 134/83 H 96 02/14/20 06:15 02/14/20 04:42 02/14/20 07:01 02/14/20 07:00 02/14/20 07:01 02/14/20 11:35 0 - Laboratory Result Diagrams: 02/14/20 05:15 02/14/20 05:15 Laboratory results interpreted by me: 02/14/20 02/14/20 05:15 07:53 Potassium 3.0 L* Creatinine 0.44 L Glucose 151 H AST 49 H ALT 38 H Urine Protein 100 H Urine Glucose (UA) 50 H Urine Ketones 80 H Urine Urobilinogen 4.0 H - Diagnostic Test Radiology reviewed: Image reviewed, Reports reviewed Radiology results interpreted by me: 02/14/20 13:31 Acute Abdomen Series 02/14/20 07:26 IMPRESSION: NO RADIOGRAPHIC EVIDENCE FOR ACUTE ABDOMINAL DISEASE. Abdominal series includes flat and upright abdomen 1 view chest shows no acute radiographic evidence of any significant problem. There is no obstruction normal bowel gas pattern in the abdomin . Chest x-ray shows some atelectasis or scarring in the bases at this time. 02/14/20 13:32 Discharge - Discharge Clinical Impression: Nausea & vomiting, Hypokalemia, Viral gastroenteritis Condition: Stable Disposition: HOME, SELF-CARE Instructions: Vomiting ([facility]), Gastroenteritis (adult) ([facility]), Clear Liquid Diet ([facility]) Prescriptions: Famotidine [Pepcid 20 mg Tablet] 20 mg PO DAILY #12 tablet Potassium Chloride [Potassium Chloride 20 Meq Packet] 20 meq PO BID #10 packet Metoclopramide HCl [Reglan 10 mg Tablet] 10 mg PO QID PRN #20 tablet PRN Reason: Referrals: DAMIAN CONNOR FNP [Primary Care Provider] - Follow up as needed I personally performed the services described in the documentation, reviewed and edited the documentation which was dictated to the scribe in my presence, and it accurately records my words and actions.
[2020-02-14 17:09] VITALS: BP 124/83
== END 2020-02-14 17:09 | disposition home or self-care (01) ==
LOC: ER 04:25
DX: A08.4 Viral intestinal infection, unspecified (principal); E87.6 Hypokalemia; R11.2 Nausea with vomiting, unspecified; I10 Essential (primary) hypertension; E11.9 Type 2 diabetes mellitus without complications; M06.9 Rheumatoid arthritis, unspecified; R19.7 Diarrhea, unspecified; Z88.8 Allergy status to other drugs, medicaments and biological substances
CPT/HCPCS: 93005; 99285; 96361; 96374; 96375; 36415; 83690; 83735; 85025; 80053; 81001; 74022; 93010; J2765; J2405; J3480; J7030; S0028

== ENCOUNTER 2020-02-19 16:38 | Emergency (ER) | payer OTHER ==
[2020-02-19] MEDS ORDERED: NORMAL SALINE 1000 ML 1,000 ML IV ONE (17:30)
[2020-02-19] MEDS ORDERED: ONDANSETRON HCL INJ/PF 4 MG/2 ML SDV IV ONE (17:30)
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
--- NOTE | 2020-02-19 17:57 | RADIOLOGY REPORT (SQ) ---
EXAM DESCRIPTION: CHEST SINGLE VIEW IMAGES COMPLETED DATE/TIME: 02/19/2020 5:48 pm REASON FOR STUDY: cp COMPARISON: 02/06/2020 EXAM PARAMETERS: NUMBER OF VIEWS: One view. TECHNIQUE: Single frontal radiographic view of the chest acquired. RADIATION DOSE: NA LIMITATIONS: None. FINDINGS: LUNGS AND PLEURA: No opacities, masses or pneumothorax. No pleural effusion. MEDIASTINUM AND HILAR STRUCTURES: No masses. Contour normal. HEART AND VASCULAR STRUCTURES: Heart normal in size. Normal vasculature. BONES: No acute findings. HARDWARE: None in the chest. OTHER: No other significant finding. IMPRESSION: NO ACUTE RADIOGRAPHIC FINDING IN THE CHEST. TECHNICAL DOCUMENTATION: JOB ID: [id number] 2010 [employer]- All Rights Reserved Reading location - IP/workstation name: [email or web address]
[2020-02-19] MEDS ORDERED: ONDANSETRON 4 MG TAB.RAPDIS PO ONE (19:12)
[2020-02-19 19:48] VITALS: BP 123/89
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
[2020-02-19] MEDS ORDERED: ONDANSETRON ODT 4 MG TAB (6 TAB/ER DISP) PO PRN (21:40)
[2020-02-19] MEDS ORDERED: LORAZEPAM 1 MG TABLET PO ONE (21:48)
== END 2020-02-19 22:32 | disposition home or self-care (01) ==
LOC: ER 16:38
DX: E11.43 Type 2 diabetes mellitus with diabetic autonomic (poly)neuropathy (principal); K31.84 Gastroparesis; K27.9 Peptic ulcer, site unspecified, unspecified as acute or chronic, without hemorrhage or perforation; K21.9 Gastro-esophageal reflux disease without esophagitis; R07.9 Chest pain, unspecified; R05 Cough; R53.1 Weakness; F41.9 Anxiety disorder, unspecified; R11.2 Nausea with vomiting, unspecified; R79.89 Other specified abnormal findings of blood chemistry; R14.0 Abdominal distension (gaseous); I10 Essential (primary) hypertension; M06.9 Rheumatoid arthritis, unspecified; Z79.52 Long term (current) use of systemic steroids; Z79.899 Other long term (current) drug therapy; Z90.49 Acquired absence of other specified parts of digestive tract; Z98.51 Tubal ligation status; Z88.8 Allergy status to other drugs, medicaments and biological substances
CPT/HCPCS: 99284; 96360; 71045; S0119; J7030

== ENCOUNTER → 2020-03-02 | Outpatient (CLI) | payer OTHER ==
--- NOTE | 2020-03-02 12:45 | RADIOLOGY REPORT (SQ) ---
EXAM DESCRIPTION: CT CHEST WITHOUT IMAGES COMPLETED DATE/TIME: 03/02/2020 7:51 am REASON FOR STUDY: R91.8 OTHER NONSPECIFIC ABNORMAL FINDING OF LUNG FIELD R91.8 OTHER NONSPECIFIC AB NORMAL FINDING OF LUNG FIELD COMPARISON: 02/07/2020 TECHNIQUE: CT scan performed of the chest without intravenous contrast. Images reviewed with lung, soft tissue and bone windows. Reconstructed coronal and sagittal MPR images reviewed. All images st ored on PACS. All CT scanners at this facility use dose modulation, iterative reconstruction, and/or weight based d osing when appropriate to reduce radiation dose to as low as reasonably achievable (ALARA). [facility]: Dose Right [facility]: CareDose [facility]: Dose Right [facility]: Teradose 4D [facility]: [email or web address] RADIATION DOSE: CT Rad equipment meets quality standard of care and radiation dose reduction techniq ues were employed. CTDIvol: 4.3 mGy. DLP: 159 mGy-cm. mGy. LIMITATIONS: No technical limitations. FINDINGS: LUNGS AND PLEURA: Subcentimeter calcified granuloma right lower lobe. Resolved right lowe r lobe ground-glass opacity. No effusions. HILAR AND MEDIASTINAL STRUCTURES: Calcified right hilar node. HEART AND VASCULAR STRUCTURES: No aneurysm. No pericardial effusion. UPPER ABDOMEN: No significant findings. Limited exam. THYROID AND OTHER SOFT TISSUES: No masses. No adenopathy. BONES: No significant finding. HARDWARE: None in the chest. OTHER: No other significant findings. IMPRESSION: Old granulomatous disease. No acute findings. TECHNICAL DOCUMENTATION: JOB ID: [id number] Quality ID # [id number]: Final reports with documentation of one or more dose reduction techniques (e.g., Au tomated exposure control, adjustment of the mA and/or kV according to patient size, use of iterative reconstruction technique) 2010 [employer]- All Rights Reserved Reading location - IP/workstation name: [email or web address]
== END ==
LOC: RAD 07:37
PROVIDERS: ATTEND Internal Medicine Pulmonary Disease
DX: R91.8 Other nonspecific abnormal finding of lung field (principal)
CPT/HCPCS: 71250